=== PATIENT | male | born 1985 | race American Indian/Alaskan Native ===

== ENCOUNTER 2021-07-05 16:04 | Emergency (ER) | payer SELFPAY ==
[2021-07-05 16:21] VITALS: BP 174/109
--- NOTE | 2021-07-05 17:41 | Emergency Department Report ---
ED General Adult HPI - General Chief complaint: High BP Stated complaint: HIGH BLOOD PRESSURE PUI?: No Source: patient Mode of arrival: Ambulatory Limitations: No Limitations - History of Present Illness Initial comments: Chief complaint: "My blood pressure was high at the dentist office." HPI: This a 36-year-old male with history of hypertension since high school age who presents with elevated blood pressure reading at dentist office. He had plan to have teeth extracted. Systolic blood pressure was in the 170s. He is not taking antihypertensive medication for several years. He managed blood pressure with lifestyle modifications. Previously took a combo antihypertensive medication including diuretic. He denies any symptoms currently. Yesterday he had mild headache which resolved with rest and Gatorade. He was referred to physician to have blood pressure management before elective dental procedure. -: This morning (Elevated blood pressure at the dentist office.) Severity scale (0 -10): 0 Improves with: none Worsens with: none Associated Symptoms: headaches Treatments Prior to Arrival: other (Blood pressure elevated reading at dentist office) - Related Data Previous Rx's Medication Instructions Recorded Last Taken Type Valsartan 80 mg PO DAILY #30 07/05/21 Unknown Rx amLODIPine 5 mg PO DAILY 30 Days #30 tab 07/05/21 Unknown Rx Allergies Allergy/AdvReac Type Severity Reaction Status Date / Time No Known Allergies Allergy Verified 07/05/21 16:21 ED Review of Systems ROS: Stated complaint: HIGH BLOOD PRESSURE Other details as noted in HPI Comment: All other systems reviewed and negative Constitutional: denies: fever, malaise Respiratory: denies: cough, shortness of breath Cardiovascular: denies: chest pain Gastrointestinal: denies: abdominal pain, nausea, vomiting Neurological: headache. denies: numbness, paresthesias, abnormal gait ED Past Medical Hx - Past Medical History Previous Medical History?: Yes Hx Hypertension: Yes - Surgical History Past Surgical History?: No - Family History Family history: hypertension (Both parents have hypertension) - Social History Smoking Status: Never Smoker Substance Use Type: None - Medications Home Medications: Home Medications Medication Instructions Recorded Confirmed Last Taken Type Valsartan 80 mg PO DAILY #30 07/05/21 Unknown Rx amLODIPine 5 mg PO DAILY 30 Days #30 tab 07/05/21 Unknown Rx ED Physical Exam - General Limitations: No Limitations General appearance: alert, in no apparent distress, other (Well-appearing, no acute distress) - Head Head exam: Present: atraumatic, normocephalic - Eye Eye exam: Present: normal appearance - ENT ENT exam: Present: mucous membranes moist - Neck Neck exam: Present: normal inspection - Respiratory Respiratory exam: Present: normal lung sounds bilaterally. Absent: respiratory distress, wheezes, rales, rhonchi - Cardiovascular Cardiovascular Exam: Present: regular rate, normal rhythm, normal heart sounds. Absent: systolic murmur, diastolic murmur, rubs, gallop - GI/Abdominal GI/Abdominal exam: Present: soft, normal bowel sounds - Rectal Rectal exam: Present: deferred - Extremities Exam Extremities exam: Present: normal inspection - Neurological Exam Neurological exam: Present: alert, oriented X3, other (Steady normal gait) - Psychiatric Psychiatric exam: Present: normal affect, normal mood - Skin Skin exam: Present: warm, dry, intact, normal color. Absent: rash ED Course Vital Signs 07/05/21 16:19 Temperature 98.8 F Pulse Rate 107 H Respiratory 14 Rate Blood Pressure 174/109 [Left] O2 Sat by Pulse 100 Oximetry ED Medical Decision Making - Medical Decision Making Asymptomatic hypertensive urgency: Prescribed amlodipine valsartan. No evidence of endorgan damage. Referred to internal medicine physician. Critical care attestation.: If time is entered above; I have spent that time in minutes in the direct care of this critically ill patient, excluding procedure time. ED Disposition Clinical Impression: Asymptomatic hypertensive urgency Disposition: HOME / SELF CARE / HOMELESS Is pt being admited?: No Does the pt Need Aspirin: No Condition: Stable Instructions: Hypertension, Adult, [id number], Managing Your Hypertension Prescriptions: amLODIPine 5 mg PO DAILY 30 Days #30 tab Valsartan 80 mg PO DAILY #30 Referrals: RPAHAEL LINARES MD [Staff Physician] - 3-5 Days
== END 2021-07-05 18:52 | disposition home or self-care (01) ==
LOC: ED 16:04
DX: I10 Essential (primary) hypertension (principal)
CPT/HCPCS: 99282